=== PATIENT | female | born 1995 | race Two or more races ===

== ENCOUNTER 2020-07-07 07:51 | Emergency (ER) | payer BC ==
[~2020-07-07] VITALS: Ht 160 cm; Wt 52.2 kg
--- NOTE | 2020-07-07 07:51 | NUR ---
PT BIB SELF C/O NAUSEA AND VOMITING STARTED THIS MORNING. +ALCOHOL INTAKE LAST NIGHT. PT IS AAOX4, NOT IN RESPIRATROY DISTRESS, V/S STABLE, KEPT RESTED AND COMFORTABLE. WILL CONTINUE TO MONITOR.
[2020-07-07] MEDS ORDERED: LIDOCAINE VISCOUS 2% UD 15 ML UDC ONE (08:00)
[2020-07-07] MEDS ORDERED: IV NS 0.9% 1,000 ML BAG IV ONE (08:00)
[2020-07-07] MEDS ORDERED: MAG HYDROX/AL HYDROX/SIMETH 30 ML UDC ONE (08:00)
[2020-07-07] MEDS ORDERED: MAG HYDROX/AL HYDROX/SIMETH 30 ML UDC PO ONE (08:00)
[2020-07-07] MEDS ORDERED: FAMOTIDINE/PF INJ 20 MG/2 ML VIAL IV ONE ×2 (08:00→08:01)
[2020-07-07] MEDS ORDERED: ONDANSETRON HCL/PF 4 MG/2 ML VIAL IVP ONE (08:00)
[2020-07-07] MEDS ORDERED: ONDANSETRON HCL/PF 4 MG/2 ML VIAL ONE (08:01)
--- NOTE | 2020-07-07 08:01 | NUR ---
SEEN AND EXMAINED BY .
--- NOTE | 2020-07-07 08:02 | NUR ---
IV LINE ESTABLISHED [id number] R AC.
--- NOTE | 2020-07-07 08:08 | NUR ---
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
[2020-07-07] MEDS ORDERED: FAMO-131 PO (08:11)
[2020-07-07] MEDS ORDERED: ONDA4TAB5 PO (08:11)
--- NOTE | 2020-07-07 09:13 | NUR ---
IV removed. Catheter intact and site benign. Pressure and 4x4 applied to site. No bleeding noted. Patient discharged to home in stable condition. Written and verbal after care instructions given. Patient verbalizes understanding of instruction.
[2020-07-07 09:14] VITALS: BP 105/52
== END 2020-07-07 09:14 | disposition home or self-care (01) ==
LOC: ER 07:56
DX: R10.13 Epigastric pain (principal); R11.2 Nausea with vomiting, unspecified; F10.10 Alcohol abuse, uncomplicated; F32.9 Major depressive disorder, single episode, unspecified; F41.9 Anxiety disorder, unspecified; Y90.9 Presence of alcohol in blood, level not specified; Z88.6 Allergy status to analgesic agent; Z79.899 Other long term (current) drug therapy
CPT/HCPCS: 71045; 96361; 96374; 96375; 99284; J2405; J3490; J7030